=== PATIENT | male | born 1960 | race Caucasian/White ===

== ENCOUNTER 2025-09-17 14:25 | Outpatient (CLI) | payer MEDICARE, SELFPAY ==
--- NOTE | ~2025-09-17 | CT_ITS ---
EXAMINATION: CT abdomen pelvis wo con DATE: 09/17/2025 14:38 INDICATION: Left lower quadrant abdominal pain. TECHNIQUE: Computed tomography (CT) of the abdomen and pelvis was performed without intravenous contrast. Automated exposure control and iterative reconstruction technique were employed. The dose-length product was 922.73 mGy-cm. COMPARISON: None. FINDINGS: The visualized portions of lung demonstrate calcified right lung nodules, consistent with old granulomatous disease. No pleural effusion. The heart size is normal. No pericardial effusion. There is an 11 mm cyst in the liver. The gallbladder, spleen, and adrenal glands are normal. There are c alcifications in the pancreas, consistent with chronic pancreatitis. Right kidney is normal. There is a 14 mm stone in left renal pelvis. The prostate is moderately enlarged. There is diverticulosis of the colon without evidence of diverticulitis. There are no dilated loops of bowel. The appendix is normal. There are no pathologically enlarged lymph nodes. There is no free intraperitoneal fluid. There is a left inguinal hernia containing fat. There is a 19 mm sebaceous cyst in the left buttock. There is severe lower lumbar spondylosis. IMPRESSION: 1. Left inguinal hernia containing fat. Reviewed, dictated and finalized at location E. [facility]
== END 2025-09-17 14:26 | disposition home or self-care (01) ==
LOC: MICIMG 14:27
DX: K40.90 Unilateral inguinal hernia, without obstruction or gangrene, not specified as recurrent (principal)
CPT/HCPCS: 74176